=== PATIENT | male | born 1960 | race Caucasian/White ===

== ENCOUNTER 2017-01-05 12:02 | Inpatient (IN) | payer MEDICARE ==
[2017-01-05] MEDS ORDERED: GABAPENTIN100 MG PO (16:12)
[2017-01-05] MEDS ORDERED: TRAZODONE HCL100 MG PO (16:12)
[2017-01-05] MEDS ORDERED: CIALIS5 MG PO ×2 (16:13→16:15)
[2017-01-05] MEDS ORDERED: LORTAB 5-325 M1 EACH PO (16:13)
[2017-01-06 03:48] LABS: HEMOGLOBIN 13.3 gm/dl (14.0-17.5); RED BLOOD COUNT 4.59 M/UL (4.20-5.50); WHITE BLOOD COUNT 10.2 K/UL (4.5-11.0)
[2017-01-06 05:01] LABS: BUN/CREATININE RATIO 9 (0-10)
[2017-01-07] MEDS ORDERED: ASPIRIN EC81 MG PO (09:33)
[2017-01-07] MEDS ORDERED: CRESTOR20 MG PO (09:34)
[2017-01-07] MEDS ORDERED: METOPROLOL SUCC25 MG PO (09:34)
[2017-01-07] MEDS ORDERED: NITROSTAT0.4 MG SL (09:35)
[2017-01-07] MEDS ORDERED: BRILINTA 90 MG90 MG PO (09:35)
== END 2017-01-07 10:44 | disposition home or self-care (01) | DRG 269 ==
LOC: ZOBSOF 12:50 → CCU 14:59
PROVIDERS: ADMIT Internal Medicine Interventional Cardiology
PROC: 027036Z Dilation of Coronary Artery, One Artery with Three Drug-eluting Intraluminal Devices, Percutaneous Approach (ICD-10-PCS; principal; 2017-01-05)
PROC: B2111ZZ Fluoroscopy of Multiple Coronary Arteries using Low Osmolar Contrast (ICD-10-PCS; principal; 2017-01-05)
PROC: 5A02210 Assistance with Cardiac Output using Balloon Pump, Continuous (ICD-10-PCS; 2017-01-06)
PROC: 02PA3RZ Removal of Short-term External Heart Assist System from Heart, Percutaneous Approach (ICD-10-PCS; 2017-01-06)
DX: I21.19 ST elevation (STEMI) myocardial infarction involving other coronary artery of inferior wall (principal); T82.855A Stenosis of coronary artery stent, initial encounter; I95.89 Other hypotension; I99.8 Other disorder of circulatory system; I25.10 Atherosclerotic heart disease of native coronary artery without angina pectoris; Y83.8 Other surgical procedures as the cause of abnormal reaction of the patient, or of later complication, without mention of misadventure at the time of the procedure; Y71.1 Therapeutic (nonsurgical) and rehabilitative cardiovascular devices associated with adverse incidents; I10 Essential (primary) hypertension; F17.210 Nicotine dependence, cigarettes, uncomplicated; Y92.234 Operating room of hospital as the place of occurrence of the external cause; E78.5 Hyperlipidemia, unspecified; Z28.21 Immunization not carried out because of patient refusal; Z79.891 Long term (current) use of opiate analgesic; Z79.899 Other long term (current) drug therapy; Z82.49 Family history of ischemic heart disease and other diseases of the circulatory system; E66.9 Obesity, unspecified; Z68.33 Body mass index [BMI] 33.0-33.9, adult; G25.81 Restless legs syndrome; M54.9 Dorsalgia, unspecified
CPT/HCPCS: ECHO; 33967; 36415; 80053; 80061; 82550; 82553; 83036; 84484; 85027; 85610; 85730; 93005; 93306; C1725; C1769; C1874; C1887; C9600; J0461; J0583; J1265; J1327; J1644; J1650; J2270; J2405; J3010; J7040; Q9965

== ENCOUNTER 2017-07-24 21:09 | Emergency (ER) | payer MEDICARE ==
[~2017-07-24 21:09] MED LIST: ASPIRIN EC81 MG PO; BRILINTA 90 MG90 MG PO; CIALIS5 MG PO; CRESTOR20 MG PO; GABAPENTIN100 MG PO; LORTAB 5-325 M1 EACH PO; METOPROLOL SUCC25 MG PO; NITROSTAT0.4 MG SL; TRAZODONE HCL100 MG PO
== END 2017-07-24 23:28 | disposition home or self-care (01) ==
LOC: ER1 21:09
DX: I10 Essential (primary) hypertension (principal); I25.2 Old myocardial infarction; Z95.5 Presence of coronary angioplasty implant and graft; Z79.899 Other long term (current) drug therapy
CPT/HCPCS: 99283

== ENCOUNTER → 2021-07-29 | Outpatient (CLI) | payer MEDICARE ==
[~2021-07-29] MED LIST changes: +AMLODIPINE BESYL5 MG PO; +CLOPIDOGREL75 MG PO; +GLUCOPHAGE 500500 MG PO; +LORATADINE10 MG PO; -METOPROLOL SUCC25 MG PO; +METOPROLOL TART25 MG PO; +NIACIN500 MG PO; +PAXIL10 MG PO; +ULTRA-LIGHT RO1 EACH MC; +VITAMIN D31250 MCG PO; +ZESTRIL40 MG PO
== END ==
LOC: HEART 5 08:45
DX: I25.10 Atherosclerotic heart disease of native coronary artery without angina pectoris (principal); R42 Dizziness and giddiness; R06.02 Shortness of breath; R53.83 Other fatigue; I10 Essential (primary) hypertension
CPT/HCPCS: 78452; 93306; A9502; J2785

== ENCOUNTER → 2021-10-26 | Day surgery (SDC) | payer MEDICARE ==
[~2021-10-26] MED LIST changes: +BRILINTA60 MG PO; +CLARITIN10 M2 PO; +FERROUS SULFAT324 MG PO; +METFORMIN ER1000 MG PO; +NIACIN ER500 MG PO; +ZESTRIL 40 MG T40 MG PO; +[UNRECOGNIZED DRUG - OTHER] PO
== END | disposition home or self-care (01) ==
LOC: OR 07:30
DX: D12.2 Benign neoplasm of ascending colon (principal); D12.4 Benign neoplasm of descending colon; D12.3 Benign neoplasm of transverse colon; D12.8 Benign neoplasm of rectum; K57.30 Diverticulosis of large intestine without perforation or abscess without bleeding; D50.9 Iron deficiency anemia, unspecified; I10 Essential (primary) hypertension; E78.5 Hyperlipidemia, unspecified; J44.9 Chronic obstructive pulmonary disease, unspecified; E11.9 Type 2 diabetes mellitus without complications; K64.1 Second degree hemorrhoids; F17.200 Nicotine dependence, unspecified, uncomplicated; E66.01 Morbid (severe) obesity due to excess calories; Z68.41 Body mass index [BMI] 40.0-44.9, adult; Z95.818 Presence of other cardiac implants and grafts; Z79.82 Long term (current) use of aspirin; Z79.84 Long term (current) use of oral hypoglycemic drugs; Z79.899 Other long term (current) drug therapy
CPT/HCPCS: 82962; J2250; J2704; J7040